=== PATIENT | female | born 1990 | race Two or more races ===

== ENCOUNTER 2024-05-27 09:36 | Emergency (ER) | payer MEDICAID, OTHER ==
[~2024-05-27] VITALS: Ht 165.1 cm; Wt 99.3 kg
[2024-05-27 11:07] VITALS: BP 110/73; PULSE 68; RESP 20; TEMP 97.8; O2SAT 97
[2024-05-27] MEDS ORDERED: IBUP1TAB5 PO (11:24)
[2024-05-27] MEDS ORDERED: ONDA-155 PO (11:39)
== END 2024-05-27 11:37 | disposition home or self-care (01) ==
LOC: ER 09:36
DX: R51.9 Headache, unspecified (principal)
CPT/HCPCS: 70450